=== PATIENT | female | born 1955 | race Caucasian/White ===

== ENCOUNTER 2020-10-28 15:47 | Inpatient (IN) | payer MEDICARE, BC ==
[2020-10-28] MEDS ORDERED: Nitroglycerin 50 MG/250 ML BOT 250 ML ONE (15:54)
[2020-10-28 16:09] LABS: Actual Bicarbonate (HCO3a) 30.9 mEq/L (22-28); Analyzer IN Cardio ER; Calcium, Ionized (arterial) 1.15 mmol/L (1.12-1.30); Carboxyhemoglobin (COHb) 0.6 gm% (0.0-3.0); Hemoglobin (Hb) 14.2 g/dL (12.0-16.0); O2 Tension (PaO2), arterial 380.3 mmHg (> 80.0); Potassium - ABG Lab 3.66 mmol/L (3.70-5.30); pH, Arterial 7.32 (7.35-7.45)
[2020-10-28 16:11] LABS: CO2 Tension 61.7 mmHg (35.0-45.0); Puncture Site RRA
[2020-10-28] MEDS ORDERED: Lidocaine 1% (PF) 30 ML VIAL ONE (16:15)
[2020-10-28 16:18] LABS: ALV-art Gradient 255.575 mmHg (0-20)
[2020-10-28 16:25] LABS: #Eosinphils 0.1 thou/uL (0.0-0.7); #Monocytes 0.9 thou/uL (0.11-0.59); #Neutrophils 16.3 thou/uL (1.40-6.50); %Basophils 0.1 % (0.0-1.0); %Eosinophils 0.5 % (0.0-10.0); %Lymphocytes 5.2 % (21.0-51.0); %Monocytes 5.1 % (0.0-10.0); %Neutrophils 89.2 % (42.0-75.0); Hemoglobin 13.4 g/dL (12.0-16.0); Mean Corpuscular HGB CONC 31.4 g/dL (32.0-36.0); Mean Corpuscular Hemoglobin 30.1 pg (27.0-31.0); Mean Platelet Volume 8.8 fL (7.4-10.4); Platelet Count 246 thou/uL (130-400); RBC Distribution Width 13.7 % (11.5-14.5); Red Blood Cell (RBC) Count 4.45 mill/uL (4.20-5.40); White Blood Cell (WBC) Count 18.3 thou/uL (4.8-10.8)
[2020-10-28 16:58] LABS: ALT (SGPT) 19 U/L (8-55); AST (SGOT) 19 U/L (5-34); Albumin 4.1 g/dL (3.4-4.8); Alkaline Phosphatase 95 U/L (40-110); Anion Gap 19 mmol/L (10-20); BUN (Urea Nitrogen) 17 mg/dL (9.8-20.1); Bilirubin, Total 0.9 mg/dL (0.2-1.2); Calc. Creatinine Clearance 0 mL/min (70-130); Calcium 9.4 mg/dL (7.8-10.44); Carbon Dioxide 27 mmol/L (23-31); Chloride 98 mmol/L (98-107); Globulin 3.7 g/dL (2.4-3.5); Glucose 152 mg/dL (80-115); Potassium 3.9 mmol/L (3.5-5.1); Protein, Total 7.8 g/dL (5.8-8.1); Sodium 140 mmol/L (136-145)
[2020-10-28] MEDS ORDERED: Furosemide 40 MG/4 ML VIAL ONE ×2 (17:13→19:45)
[2020-10-28 17:18] LABS: Bacteria/HPF None Seen HPF (None Seen); Bilirubin Negative (Negative); Blood, Urine Negative (Negative); Clarity Turbid (Clear); Glucose, Urine (Dipstick) Normal (Negative); Ketone, Urine 10 mg/dL (Negative); Leukocyte Negative Leu/uL (Negative); Nitrite Negative (Negative); Protein, Urine (Dipstick) 300 mg/dL (Neg-Trace); RBC/HPF 0-3 HPF (0-3); Specific Gravity, Urine 1.019 (1.002-1.036); Squamous Epithelial None Seen HPF (0-3); Urobilinogen Normal mg/dL (Less than 2); WBC/HPF 0-3 HPF (0-3); pH, Urine 7.5 (5.0-9.0)
[2020-10-28] MEDS ORDERED: cefTRIAXone\\ROCEPHIN 2 GM VIAL ONE (17:31)
[2020-10-28] MEDS ORDERED: Azithromycin 500 MG VIAL ONE (17:31)
[2020-10-28 17:50] LABS: SARS-CoV-2 NAA Rapid Test Not Detected (NotDetected)
[2020-10-28] MEDS ORDERED: Labetalol HCl 100 MG/20 ML VIAL ONE (18:24)
[2020-10-28] MEDS ORDERED: Acetaminophen 500 MG TAB ONE ×2 (19:51→19:52)
[2020-10-28] MEDS ORDERED: Bisacodyl 10 MG SUPP PR PRN (20:09)
[2020-10-28] MEDS ORDERED: hydrALAZINE 20 MG/ML VIAL SLOW IVP PRN (20:13)
[2020-10-28] MEDS ORDERED: Furosemide 40 MG/4 ML VIAL SLOW IVP SCH (20:15)
[2020-10-28] MEDS ORDERED: hydrALAZINE 20 MG/ML VIAL ONE (21:12)
[2020-10-28] MEDS ORDERED: Nitroglycerin 2% Ointment 1 INCH/1 GM Packet ONE (21:33)
[2020-10-28 22:25] VITALS: BMI 50.3
[2020-10-28] MEDS ORDERED: Losartan 25 MG TAB PO SCH (22:45)
[2020-10-28] MEDS ORDERED: hydrALAZINE 25 MG TAB PO SCH (22:45)
[2020-10-28] MEDS ORDERED: Carvedilol 25 MG TAB PO SCH (22:45)
[2020-10-28] MEDS: Nitroglycerin 2% Ointment 1 INCH/1 GM Packet TOP SCH (22:58)
[2020-10-29 00:05] LABS: Troponin I 0.478 ng/mL (< 0.028)
[2020-10-29] MEDS: Ondansetron PF 4 MG/2 ML Vial IVP PRN ×2 (02:31→09:01)
[2020-10-29 04:07] LABS: #Lymphocytes 0.5 thou/uL (1.20-3.40); #Monocytes 0.1 thou/uL (0.11-0.59); #Neutrophils 9.5 thou/uL (1.40-6.50); %Basophils 0.1 % (0.0-1.0); %Eosinophils 0.1 % (0.0-10.0); %Lymphocytes 4.8 % (21.0-51.0); %Monocytes 0.9 % (0.0-10.0); Hemoglobin 13.1 g/dL (12.0-16.0); Mean Corpuscular HGB CONC 33.7 g/dL (32.0-36.0); Mean Corpuscular Hemoglobin 32.1 pg (27.0-31.0); Mean Corpuscular Volume 95.3 fL (78.0-98.0); Mean Platelet Volume 9.5 fL (7.4-10.4); Platelet Count 195 thou/uL (130-400); RBC Distribution Width 13.6 % (11.5-14.5); Red Blood Cell (RBC) Count 4.08 mill/uL (4.20-5.40); White Blood Cell (WBC) Count 10.1 thou/uL (4.8-10.8)
[2020-10-29] MEDS ORDERED: Ondansetron PF 4 MG/2 ML Vial IVP SCH ×2 (04:15→13:00)
[2020-10-29 04:29] LABS: Albumin 3.8 g/dL (3.4-4.8); Anion Gap 16 mmol/L (10-20); BUN (Urea Nitrogen) 17 mg/dL (9.8-20.1); BUN/Creatinine Ratio 18.48; Calc. Creatinine Clearance 124 mL/min (70-130); Calcium 9.1 mg/dL (7.8-10.44); Carbon Dioxide 31 mmol/L (23-31); Chloride 93 mmol/L (98-107); Glucose 131 mg/dL (80-115); Phosphorus 3.4 mg/dL (2.3-4.7); Potassium 3.2 mmol/L (3.5-5.1); Sodium 137 mmol/L (136-145)
[2020-10-29] MEDS: Furosemide 100 MG/10 ML VIAL SLOW IVP SCH ×2 (05:18→14:43)
[2020-10-29] MEDS: Nitroglycerin 2% Ointment 1 INCH/1 GM Packet TOP SCH ×3 (06:36→22:15)
[2020-10-29] MEDS ORDERED: Carvedilol 25 MG TAB PO SCH (08:00)
[2020-10-29] MEDS: Enoxaparin Sodium 40 MG/0.4 ML SYRINGE SC SCH (09:00)
[2020-10-29] MEDS ORDERED: Lorazepam 2 MG/ML VIAL ONE (11:23)
[2020-10-29 12:14] LABS: Creatinine, Urine 70.22 mg/dL (47-110)
[2020-10-29] MEDS ORDERED: Potassium Chloride 20 MEQ TAB PO SCH (12:15)
[2020-10-29] MEDS: hydrALAZINE 25 MG TAB PO SCH ×3 (12:20→20:50)
[2020-10-29] MEDS: Losartan 25 MG TAB PO SCH (12:20)
[2020-10-29] MEDS ORDERED: Aspirin 81 mg Enteric Coated Tablet PO SCH (13:15)
[2020-10-29] MEDS: Mometasone 200 MCG/Formoterol 5 MCG 120 PUFF INHALER INH SCH ×3 (13:59→18:29)
[2020-10-29] MEDS: Baclofen 10 MG TAB PO SCH ×3 (14:42→23:35)
[2020-10-29] MEDS: methylPREDNISolone Sod Succ 40 MG VIAL IVP SCH ×3 (14:43→23:14)
[2020-10-29] MEDS ORDERED: cefTRIAXone\\ROCEPHIN 1 GM in Sodium Chloride 0.9% 100 ML IVPB SCH (17:00)
[2020-10-29] MEDS: Potassium Chloride 20 MEQ TAB PO SCH (17:39)
[2020-10-29] MEDS: Dronedarone HCl 400 MG TAB PO SCH (17:39)
[2020-10-29] MEDS: cefTRIAXone\\ROCEPHIN 2 GM in Sodium Chloride 0.9% 100 ML IVPB SCH (17:40)
[2020-10-29] MEDS ORDERED: Azithromycin 500 MG in Sodium Chloride 0.9% 250 ML 250 ML IVPB SCH (18:00)
[2020-10-29] MEDS ORDERED: Ondansetron PF 4 MG/2 ML Vial IVP PRN (19:00)
[2020-10-29] MEDS: Azithromycin 500 MG in Sodium Chloride 0.9% 250 ML 250 ML IVPB SCH (20:49)
[2020-10-29] MEDS: Pregabalin 75 MG CAP PO SCH (20:50)
[2020-10-29] MEDS: traZODone HCl 50 MG TAB PO SCH (20:52)
[2020-10-29] MEDS: Carvedilol 25 MG TAB PO SCH (20:52)
[2020-10-30] MEDS: NIFEdipine XL 60 MG TAB PO SCH ×3 (00:08→20:52)
[2020-10-30 04:05] LABS: #Lymphocytes 0.6 thou/uL (1.20-3.40); #Monocytes 0.3 thou/uL (0.11-0.59); #Neutrophils 10.9 thou/uL (1.40-6.50); %Basophils 0.1 % (0.0-1.0); %Eosinophils 0.1 % (0.0-10.0); %Lymphocytes 4.7 % (21.0-51.0); %Monocytes 2.2 % (0.0-10.0); %Neutrophils 92.9 % (42.0-75.0); Hemoglobin 12.3 g/dL (12.0-16.0); Mean Corpuscular HGB CONC 33.5 g/dL (32.0-36.0); Mean Corpuscular Hemoglobin 32.3 pg (27.0-31.0); Mean Corpuscular Volume 96.4 fL (78.0-98.0); Platelet Count 228 thou/uL (130-400); RBC Distribution Width 13.9 % (11.5-14.5); Red Blood Cell (RBC) Count 3.81 mill/uL (4.20-5.40); White Blood Cell (WBC) Count 11.8 thou/uL (4.8-10.8)
[2020-10-30 04:28] LABS: Anion Gap 17 mmol/L (10-20); BUN (Urea Nitrogen) 24 mg/dL (9.8-20.1); Calc. Creatinine Clearance 105 mL/min (70-130); Carbon Dioxide 32 mmol/L (23-31); Chloride 96 mmol/L (98-107); Glucose 140 mg/dL (80-115); Magnesium 2.2 mg/dL (1.6-2.6); Potassium 3.6 mmol/L (3.5-5.1); Sodium 141 mmol/L (136-145)
[2020-10-30] MEDS: Furosemide 100 MG/10 ML VIAL SLOW IVP SCH ×2 (05:42→13:00)
[2020-10-30] MEDS: Levothyroxine Sodium 125 MCG TAB PO SCH (05:42)
[2020-10-30] MEDS: methylPREDNISolone Sod Succ 40 MG VIAL IVP SCH ×4 (05:43→23:09)
[2020-10-30] MEDS: Nitroglycerin 2% Ointment 1 INCH/1 GM Packet TOP SCH ×3 (06:06→20:20)
[2020-10-30] MEDS: Acetaminophen 325 MG TAB PO PRN ×2 (06:25→20:18)
[2020-10-30] MEDS: Mometasone 200 MCG/Formoterol 5 MCG 120 PUFF INHALER INH SCH ×2 (08:17→18:27)
[2020-10-30] MEDS: Bupropion 100 MG SR TAB PO SCH (08:40)
[2020-10-30] MEDS: Carvedilol 25 MG TAB PO SCH ×2 (08:41→20:18)
[2020-10-30] MEDS: Dronedarone HCl 400 MG TAB PO SCH ×2 (08:41→17:07)
[2020-10-30] MEDS: Losartan 25 MG TAB PO SCH (08:41)
[2020-10-30] MEDS: Potassium Chloride 20 MEQ TAB PO SCH ×2 (08:41→16:36)
[2020-10-30] MEDS: Lorazepam 2 MG/ML VIAL SLOW IVP PRN (08:42)
[2020-10-30] MEDS: Aspirin 81 mg Enteric Coated Tablet PO SCH (08:42)
[2020-10-30] MEDS: Enoxaparin Sodium 40 MG/0.4 ML SYRINGE SC SCH (08:42)
[2020-10-30] MEDS: Baclofen 10 MG TAB PO SCH ×4 (08:42→20:20)
[2020-10-30] MEDS: HYDROcodone/Acetaminophen 5/325 mg Tablet PO PRN ×2 (08:42→21:29)
[2020-10-30] MEDS: Pregabalin 75 MG CAP PO SCH ×2 (08:55→20:19)
[2020-10-30 14:17] LABS: Anion Gap 18 mmol/L (10-20); BUN (Urea Nitrogen) 28 mg/dL (9.8-20.1); Calc. Creatinine Clearance 92 mL/min (70-130); Calcium 9.1 mg/dL (7.8-10.44); Carbon Dioxide 30 mmol/L (23-31); Chloride 96 mmol/L (98-107); Glucose 189 mg/dL (80-115); Sodium 140 mmol/L (136-145)
[2020-10-30] MEDS: cefTRIAXone\\ROCEPHIN 2 GM in Sodium Chloride 0.9% 100 ML IVPB SCH (18:24)
[2020-10-30] MEDS: traZODone HCl 50 MG TAB PO SCH (20:19)
[2020-10-30] MEDS: Azithromycin 500 MG in Sodium Chloride 0.9% 250 ML 250 ML IVPB SCH (20:51)
[2020-10-31 05:04] LABS: Troponin I 0.052 ng/mL (< 0.028)
[2020-10-31] MEDS: Nitroglycerin 2% Ointment 1 INCH/1 GM Packet TOP SCH (05:28)
[2020-10-31] MEDS: Levothyroxine Sodium 125 MCG TAB PO SCH (05:29)
[2020-10-31] MEDS: methylPREDNISolone Sod Succ 40 MG VIAL IVP SCH (05:29)
[2020-10-31 07:50] LABS: Albumin 3.7 g/dL (3.4-4.8); BUN (Urea Nitrogen) 36 mg/dL (9.8-20.1); BUN/Creatinine Ratio 27.69; Calc. Creatinine Clearance 85 mL/min (70-130); Calcium 9.4 mg/dL (7.8-10.44); Glucose 171 mg/dL (80-115); Phosphorus 3.5 mg/dL (2.3-4.7)
[2020-10-31 08:01] LABS: Anion Gap 14 mmol/L (10-20); Carbon Dioxide 37 mmol/L (23-31); Chloride 95 mmol/L (98-107); Potassium 3.4 mmol/L (3.5-5.1); Sodium 143 mmol/L (136-145)
[2020-10-31] MEDS ORDERED: Potassium Chloride 20 MEQ TAB PO SCH ×2 (08:30→13:45)
[2020-10-31 08:31] LABS: #Lymphocytes 0.6 thou/uL (1.20-3.40); #Monocytes 0.4 thou/uL (0.11-0.59); %Eosinophils 0.1 % (0.0-10.0); %Monocytes 3.2 % (0.0-10.0); %Neutrophils 91.7 % (42.0-75.0); Hemoglobin 13.2 g/dL (12.0-16.0); Mean Corpuscular HGB CONC 33.6 g/dL (32.0-36.0); Mean Corpuscular Hemoglobin 32.5 pg (27.0-31.0); Mean Corpuscular Volume 96.8 fL (78.0-98.0); Mean Platelet Volume 8.7 fL (7.4-10.4); Platelet Count 231 thou/uL (130-400); RBC Distribution Width 13.6 % (11.5-14.5); Red Blood Cell (RBC) Count 4.07 mill/uL (4.20-5.40)
[2020-10-31] MEDS: Losartan 25 MG TAB PO SCH (08:39)
[2020-10-31] MEDS: NIFEdipine XL 60 MG TAB PO SCH ×2 (08:39→19:58)
[2020-10-31] MEDS: Aspirin 81 mg Enteric Coated Tablet PO SCH (08:39)
[2020-10-31] MEDS: Pregabalin 75 MG CAP PO SCH ×2 (08:40→19:58)
[2020-10-31] MEDS: Bupropion 100 MG SR TAB PO SCH (08:40)
[2020-10-31] MEDS: Enoxaparin Sodium 40 MG/0.4 ML SYRINGE SC SCH (08:41)
[2020-10-31] MEDS: HYDROcodone/Acetaminophen 5/325 mg Tablet PO PRN (08:41)
[2020-10-31] MEDS: Dronedarone HCl 400 MG TAB PO SCH ×2 (08:41→15:41)
[2020-10-31] MEDS: Baclofen 10 MG TAB PO SCH ×4 (08:41→19:59)
[2020-10-31] MEDS: Carvedilol 25 MG TAB PO SCH ×2 (08:45→19:58)
[2020-10-31 08:52] LABS: BUN (Urea Nitrogen) 36 mg/dL (9.8-20.1); Calc. Creatinine Clearance 94 mL/min (70-130); Calcium 9.4 mg/dL (7.8-10.44); Glucose 164 mg/dL (80-115)
[2020-10-31] MEDS: Doxycycline 100 MG CAP PO SCH ×2 (08:55→19:58)
[2020-10-31 09:01] LABS: Anion Gap 20 mmol/L (10-20); Carbon Dioxide 32 mmol/L (23-31); Chloride 94 mmol/L (98-107); Potassium 3.3 mmol/L (3.5-5.1); Sodium 143 mmol/L (136-145)
[2020-10-31] MEDS: Lorazepam 2 MG/ML VIAL SLOW IVP PRN (10:27)
[2020-10-31] MEDS: Mometasone 200 MCG/Formoterol 5 MCG 120 PUFF INHALER INH SCH ×2 (10:30→18:44)
[2020-10-31] MEDS: Potassium Chloride 20 MEQ TAB PO SCH (15:41)
[2020-10-31] MEDS: traZODone HCl 50 MG TAB PO SCH (19:58)
[2020-10-31] MEDS ORDERED: Famotidine 20 MG TAB PO SCH (22:00)
[2020-11-01 05:14] LABS: Albumin 3.5 g/dL (3.4-4.8); Anion Gap 11 mmol/L (10-20); BUN (Urea Nitrogen) 33 mg/dL (9.8-20.1); BUN/Creatinine Ratio 34.74; Calc. Creatinine Clearance 116 mL/min (70-130); Calcium 9.3 mg/dL (7.8-10.44); Carbon Dioxide 37 mmol/L (23-31); Chloride 96 mmol/L (98-107); Glucose 147 mg/dL (80-115); Magnesium 2.1 mg/dL (1.6-2.6); Potassium 4.3 mmol/L (3.5-5.1); Sodium 140 mmol/L (136-145)
[2020-11-01] MEDS: Levothyroxine Sodium 125 MCG TAB PO SCH (05:36)
[2020-11-01] MEDS: HYDROcodone/Acetaminophen 5/325 mg Tablet PO PRN (07:17)
[2020-11-01] MEDS: Carvedilol 25 MG TAB PO SCH (07:20)
[2020-11-01] MEDS ORDERED: predniSONE 20 MG TAB PO SCH (08:00)
[2020-11-01] MEDS: Mometasone 200 MCG/Formoterol 5 MCG 120 PUFF INHALER INH SCH (08:20)
[2020-11-01] MEDS: Dronedarone HCl 400 MG TAB PO SCH (08:36)
[2020-11-01] MEDS: NIFEdipine XL 60 MG TAB PO SCH (08:36)
[2020-11-01] MEDS: Bupropion 100 MG SR TAB PO SCH (08:36)
[2020-11-01] MEDS: Aspirin 81 mg Enteric Coated Tablet PO SCH (08:36)
[2020-11-01] MEDS: Enoxaparin Sodium 40 MG/0.4 ML SYRINGE SC SCH (08:36)
[2020-11-01] MEDS: Doxycycline 100 MG CAP PO SCH (08:36)
[2020-11-01] MEDS: Pregabalin 75 MG CAP PO SCH (08:36)
[2020-11-01] MEDS: Losartan 25 MG TAB PO SCH (08:37)
[2020-11-01] MEDS: Potassium Chloride 20 MEQ TAB PO SCH (08:37)
[2020-11-01] MEDS: hydrALAZINE 25 MG TAB PO SCH ×2 (08:39→13:54)
[2020-11-01] MEDS: Baclofen 10 MG TAB PO SCH ×2 (08:42→13:54)
[2020-11-01] MEDS ORDERED: Famotidine 20 MG TAB PO SCH (09:00)
[2020-11-01] MEDS ORDERED: HYDROmorphone 0.5 MG/0.5 ML SYRINGE SLOW IVP SCH (09:15)
[2020-11-01] MEDS ORDERED: Promethazine HCl 12.5 MG in Sodium Chloride 0.9% 50 ML IVPB PRN (13:22)
[2020-11-01 13:54] VITALS: BP 130/62; TEMP 97.7
[2020-11-01] MEDS ORDERED: Promethazine HCl 6.25 MG/5 ML Syrup PO PRN (14:19)
== END 2020-11-01 15:12 | disposition home health service (06) | DRG 280 ==
LOC: ERS 15:47 → IMCU/EMU 18:21 → 2NO 10-30 20:36
PROVIDERS: ADMIT Family Medicine; ATTEND Internal Medicine
PROC: 5A09457 Assistance with Respiratory Ventilation, 24-96 Consecutive Hours, Continuous Positive Airway Pressure (ICD-10-PCS; principal; 2020-10-28)
DX: I13.0 Hypertensive heart and chronic kidney disease with heart failure and stage 1 through stage 4 chronic kidney disease, or unspecified chronic kidney disease (principal); J18.9 Pneumonia, unspecified organism; I21.4 Non-ST elevation (NSTEMI) myocardial infarction; J96.21 Acute and chronic respiratory failure with hypoxia; J96.22 Acute and chronic respiratory failure with hypercapnia; I50.33 Acute on chronic diastolic (congestive) heart failure; J44.1 Chronic obstructive pulmonary disease with (acute) exacerbation; J44.0 Chronic obstructive pulmonary disease with (acute) lower respiratory infection; E66.2 Morbid (severe) obesity with alveolar hypoventilation; N17.9 Acute kidney failure, unspecified; E87.4 Mixed disorder of acid-base balance; I16.1 Hypertensive emergency; Z68.42 Body mass index [BMI] 45.0-49.9, adult; Z20.822 Contact with and (suspected) exposure to COVID-19; E78.5 Hyperlipidemia, unspecified; I25.10 Atherosclerotic heart disease of native coronary artery without angina pectoris; N18.9 Chronic kidney disease, unspecified; F32.9 Major depressive disorder, single episode, unspecified; F41.9 Anxiety disorder, unspecified; E03.9 Hypothyroidism, unspecified; G89.29 Other chronic pain; E78.00 Pure hypercholesterolemia, unspecified; I48.0 Paroxysmal atrial fibrillation; E87.6 Hypokalemia; Z89.511 Acquired absence of right leg below knee; Z95.5 Presence of coronary angioplasty implant and graft; Z96.82 Presence of neurostimulator; Z88.8 Allergy status to other drugs, medicaments and biological substances; Z79.01 Long term (current) use of anticoagulants; Z79.82 Long term (current) use of aspirin; Z79.899 Other long term (current) drug therapy; Z99.81 Dependence on supplemental oxygen; Z82.3 Family history of stroke; Z87.891 Personal history of nicotine dependence
CPT/HCPCS: 0240U; 36415; 36600; 36620; 51702; 71045; 80048; 80053; 80069; 81003; 81015; 82088; 82570; 82805; 83605; 83735; 83880; 84156; 84244; 84443; 84484; 85025; 87040; 87086; 93005; 93306; 94640; 94660; 94760; 96365; 96366; 96367; 96375; 96376; J0360; J0456; J0696; J1170; J1650; J1940; J2001; J2060; J2405; J2550; J2920; J3490; J7050; J7512; J7620; Q0169

== ENCOUNTER 2021-02-19 13:00 | Inpatient (IN) | payer MEDICARE, BC ==
[2021-02-19 13:51] LABS: #Eosinphils 0.1 thou/uL (0.0-0.7); #Lymphocytes 1.1 thou/uL (1.20-3.40); #Monocytes 0.7 thou/uL (0.11-0.59); #Neutrophils 6.8 thou/uL (1.40-6.50); %Basophils 0.3 % (0.0-1.0); %Eosinophils 1.7 % (0.0-10.0); %Lymphocytes 12.5 % (21.0-51.0); %Monocytes 8.2 % (0.0-10.0); %Neutrophils 77.4 % (42.0-75.0); Hemoglobin 12.2 g/dL (12.0-16.0); Mean Corpuscular Hemoglobin 33.6 pg (27.0-31.0); Mean Corpuscular Volume 98.7 fL (78.0-98.0); Mean Platelet Volume 8.4 fL (7.4-10.4); Platelet Count 180 thou/uL (130-400); RBC Distribution Width 12.9 % (11.5-14.5); Red Blood Cell (RBC) Count 3.63 mill/uL (4.20-5.40); White Blood Cell (WBC) Count 8.7 thou/uL (4.8-10.8)
[2021-02-19 14:19] LABS: ALT (SGPT) 14 U/L (8-55); AST (SGOT) 15 U/L (5-34); Albumin 3.8 g/dL (3.4-4.8); Alkaline Phosphatase 91 U/L (40-110); BUN (Urea Nitrogen) 19 mg/dL (9.8-20.1); Bilirubin, Total 0.4 mg/dL (0.2-1.2); Calc. Creatinine Clearance 0 mL/min (70-130); Calcium 9.3 mg/dL (7.8-10.44); Globulin 2.5 g/dL (2.4-3.5); Glucose 165 mg/dL (80-115); Protein, Total 6.3 g/dL (5.8-8.1)
[2021-02-19 14:29] LABS: Anion Gap 18 mmol/L (10-20); Carbon Dioxide 36 mmol/L (23-31); Chloride 94 mmol/L (98-107); Potassium 3.4 mmol/L (3.5-5.1); Sodium 145 mmol/L (136-145)
[2021-02-19 16:56] LABS: SARS-CoV-2 NAA Rapid Test Not Detected (NotDetected)
[2021-02-19 17:24] LABS: Troponin I Less than 0.010 ng/mL (< 0.028)
[2021-02-19] MEDS ORDERED: Bisacodyl 5 MG TAB PO PRN (18:50)
[2021-02-19] MEDS ORDERED: Ondansetron PF 4 MG/2 ML Vial IVP PRN (18:50)
[2021-02-19] MEDS ORDERED: HYDROcodone/Acetaminophen 7.5/325 mg Tablet PO PRN (18:50)
[2021-02-19] MEDS ORDERED: HYDROcodone/Acetaminophen 5/325 mg Tablet PO PRN (18:50)
[2021-02-19] MEDS ORDERED: Acetaminophen 325 MG TAB PO PRN (18:50)
[2021-02-19] MEDS ORDERED: Senokot S 8.6-50 MG TAB PO PRN (18:50)
[2021-02-19] MEDS ORDERED: Melatonin 3 MG TAB PO PRN (18:57)
[2021-02-19 21:08] LABS: Troponin I 0.013 ng/mL (< 0.028)
[2021-02-19] MEDS: Famotidine/PF 20 mg/2ml Vial SLOW IVP SCH (21:24)
[2021-02-19] MEDS: hydrALAZINE 20 MG/ML VIAL SLOW IVP PRN (21:24)
[2021-02-19 23:28] VITALS: BMI 52.0
[2021-02-20] MEDS: hydrALAZINE 20 MG/ML VIAL SLOW IVP PRN (01:52)
[2021-02-20] MEDS ORDERED: Albuterol Sulfate 2.5 mg/3 ml Neb NEB PRN (02:17)
[2021-02-20] MEDS: Levothyroxine Sodium 125 MCG TAB PO SCH (06:22)
[2021-02-20 06:34] LABS: #Eosinphils 0.1 thou/uL (0.0-0.7); #Lymphocytes 1.2 thou/uL (1.20-3.40); #Monocytes 0.9 thou/uL (0.11-0.59); #Neutrophils 7.2 thou/uL (1.40-6.50); %Basophils 0.2 % (0.0-1.0); %Lymphocytes 12.3 % (21.0-51.0); %Monocytes 9.6 % (0.0-10.0); %Neutrophils 76.9 % (42.0-75.0); Hemoglobin 12.1 g/dL (12.0-16.0); Mean Corpuscular HGB CONC 32.7 g/dL (32.0-36.0); Mean Corpuscular Volume 97.8 fL (78.0-98.0); Mean Platelet Volume 8.5 fL (7.4-10.4); Platelet Count 176 thou/uL (130-400); RBC Distribution Width 12.8 % (11.5-14.5); Red Blood Cell (RBC) Count 3.78 mill/uL (4.20-5.40); White Blood Cell (WBC) Count 9.3 thou/uL (4.8-10.8)
[2021-02-20 06:53] LABS: ALT (SGPT) 13 U/L (8-55); AST (SGOT) 15 U/L (5-34); Albumin 3.6 g/dL (3.4-4.8); Alkaline Phosphatase 85 U/L (40-110); Anion Gap 12 mmol/L (10-20); BUN (Urea Nitrogen) 14 mg/dL (9.8-20.1); Bilirubin, Total 0.5 mg/dL (0.2-1.2); Calc. Creatinine Clearance 126 mL/min (70-130); Calcium 9.4 mg/dL (7.8-10.44); Carbon Dioxide 36 mmol/L (23-31); Cardiac Risk 2.8 (Less than 4.5); Chloride 97 mmol/L (98-107); Cholesterol 132 mg/dl (< 200 Desired); Globulin 2.6 g/dL (2.4-3.5); Glucose 104 mg/dL (80-115); HDL Cholesterol 48 mg/dL (>60 Neg Risk); LDL Cholesterol, Calculated 71 mg/dL; Potassium 3.2 mmol/L (3.5-5.1); Protein, Total 6.2 g/dL (5.8-8.1); Sodium 142 mmol/L (136-145); Triglycerides 65 mg/dL (Less than 150)
[2021-02-20] MEDS: Mometasone 100 MCG/PUFF (1 INHALER) INH SCH ×2 (06:58→18:15)
[2021-02-20 07:51] LABS: Hemoglobin A1c 5.5 % (4.0-6.0)
[2021-02-20] MEDS: Pregabalin 75 MG CAP PO SCH ×2 (08:29→21:39)
[2021-02-20] MEDS: Enoxaparin Sodium 40 MG/0.4 ML SYRINGE SC SCH (08:29)
[2021-02-20] MEDS: Rosuvastatin 20 MG TAB PO SCH (08:30)
[2021-02-20] MEDS: hydrALAZINE 25 MG TAB PO SCH ×3 (08:30→16:59)
[2021-02-20] MEDS: NIFEdipine XL 60 MG TAB PO SCH ×2 (08:31→21:38)
[2021-02-20] MEDS: Dronedarone HCl 400 MG TAB PO SCH ×2 (08:31→21:38)
[2021-02-20] MEDS: Escitalopram Oxalate 10 mg Tablet PO SCH (08:31)
[2021-02-20] MEDS: Famotidine/PF 20 mg/2ml Vial SLOW IVP SCH ×2 (08:32→21:38)
[2021-02-20] MEDS: Carvedilol 25 MG TAB PO SCH ×2 (08:47→21:38)
[2021-02-20] MEDS ORDERED: Bumetanide 1 MG TAB PO SCH (09:00)
[2021-02-20] MEDS ORDERED: Losartan 25 MG TAB PO SCH (09:00)
[2021-02-20] MEDS ORDERED: Potassium Chloride 20 MEQ TAB PO SCH (09:00)
[2021-02-20] MEDS ORDERED: Non-Formulary Item 1 EACH (Fluticasone/Umeclidin/Vilanter [Trelegy Ellipta 200-62.5-25] 1 INH SCH (09:00)
[2021-02-20] MEDS: Furosemide 40 MG/4 ML VIAL SLOW IVP SCH (14:09)
[2021-02-21 06:10] LABS: Phosphorus 3.2 mg/dL (2.3-4.7)
[2021-02-21 06:11] LABS: Anion Gap 11 mmol/L (10-20); BUN (Urea Nitrogen) 14 mg/dL (9.8-20.1); Calc. Creatinine Clearance 121 mL/min (70-130); Calcium 9.2 mg/dL (7.8-10.44); Carbon Dioxide 36 mmol/L (23-31); Chloride 99 mmol/L (98-107); Glucose 85 mg/dL (80-115); Magnesium 1.9 mg/dL (1.6-2.6); Potassium 3.4 mmol/L (3.5-5.1); Sodium 143 mmol/L (136-145)
[2021-02-21] MEDS: Furosemide 40 MG/4 ML VIAL SLOW IVP SCH ×2 (06:34→14:41)
[2021-02-21] MEDS: Levothyroxine Sodium 125 MCG TAB PO SCH (06:34)
[2021-02-21] MEDS: Mometasone 100 MCG/PUFF (1 INHALER) INH SCH ×2 (06:55→18:23)
[2021-02-21] MEDS: Rosuvastatin 20 MG TAB PO SCH (09:10)
[2021-02-21] MEDS: hydrALAZINE 25 MG TAB PO SCH ×3 (09:10→16:55)
[2021-02-21] MEDS: Pregabalin 75 MG CAP PO SCH ×2 (09:11→21:33)
[2021-02-21] MEDS: NIFEdipine XL 60 MG TAB PO SCH ×2 (09:12→20:46)
[2021-02-21] MEDS: Dronedarone HCl 400 MG TAB PO SCH ×2 (09:12→20:46)
[2021-02-21] MEDS: Escitalopram Oxalate 10 mg Tablet PO SCH (09:12)
[2021-02-21] MEDS: Carvedilol 25 MG TAB PO SCH ×2 (09:12→20:46)
[2021-02-21] MEDS: Enoxaparin Sodium 40 MG/0.4 ML SYRINGE SC SCH (09:13)
[2021-02-21] MEDS: Famotidine/PF 20 mg/2ml Vial SLOW IVP SCH ×2 (09:13→20:46)
[2021-02-21] MEDS ORDERED: Potassium Chloride 20 MEQ TAB PO SCH (11:00)
[2021-02-22] MEDS: Levothyroxine Sodium 125 MCG TAB PO SCH (05:26)
[2021-02-22] MEDS: Furosemide 40 MG/4 ML VIAL SLOW IVP SCH (05:26)
[2021-02-22] MEDS: Mometasone 100 MCG/PUFF (1 INHALER) INH SCH (06:30)
[2021-02-22] MEDS: Rosuvastatin 20 MG TAB PO SCH (08:34)
[2021-02-22] MEDS: NIFEdipine XL 60 MG TAB PO SCH (08:34)
[2021-02-22] MEDS: Enoxaparin Sodium 40 MG/0.4 ML SYRINGE SC SCH (08:35)
[2021-02-22] MEDS: Escitalopram Oxalate 10 mg Tablet PO SCH (08:35)
[2021-02-22] MEDS: Pregabalin 75 MG CAP PO SCH (08:35)
[2021-02-22] MEDS: Carvedilol 25 MG TAB PO SCH (08:35)
[2021-02-22] MEDS: Dronedarone HCl 400 MG TAB PO SCH (08:35)
[2021-02-22] MEDS: hydrALAZINE 25 MG TAB PO SCH ×2 (08:35→12:35)
[2021-02-22] MEDS: Famotidine/PF 20 mg/2ml Vial SLOW IVP SCH (08:36)
[2021-02-22 10:00] LABS: BUN (Urea Nitrogen) 17 mg/dL (9.8-20.1); Calc. Creatinine Clearance 88 mL/min (70-130); Calcium 9.6 mg/dL (7.8-10.44); Glucose 128 mg/dL (80-115)
[2021-02-22 10:09] LABS: Anion Gap 12 mmol/L (10-20); Carbon Dioxide 38 mmol/L (23-31); Chloride 96 mmol/L (98-107); Potassium 3.4 mmol/L (3.5-5.1); Sodium 143 mmol/L (136-145)
[2021-02-22] MEDS ORDERED: Potassium Chloride 20 MEQ TAB PO SCH (11:30)
[2021-02-22 13:49] VITALS: BP 111/56; TEMP 97.9
== END 2021-02-22 13:15 | disposition home or self-care (01) | DRG 291 ==
LOC: ERS 13:00 → ERHOLD 16:27 → 2SW 19:50 → OBSVTOIN 02-20 15:00
PROVIDERS: ADMIT Family Medicine; ATTEND Internal Medicine
DX: I13.0 Hypertensive heart and chronic kidney disease with heart failure and stage 1 through stage 4 chronic kidney disease, or unspecified chronic kidney disease (principal); J96.21 Acute and chronic respiratory failure with hypoxia; I50.33 Acute on chronic diastolic (congestive) heart failure; E87.3 Alkalosis; Z68.43 Body mass index [BMI] 50.0-59.9, adult; Z20.822 Contact with and (suspected) exposure to COVID-19; I48.91 Unspecified atrial fibrillation; I25.10 Atherosclerotic heart disease of native coronary artery without angina pectoris; F41.9 Anxiety disorder, unspecified; F32.A Depression, unspecified; E66.01 Morbid (severe) obesity due to excess calories; D63.1 Anemia in chronic kidney disease; G89.29 Other chronic pain; I16.0 Hypertensive urgency; J44.9 Chronic obstructive pulmonary disease, unspecified; E78.5 Hyperlipidemia, unspecified; N18.30 Chronic kidney disease, stage 3 unspecified; R73.9 Hyperglycemia, unspecified; E03.9 Hypothyroidism, unspecified; E87.6 Hypokalemia; E78.00 Pure hypercholesterolemia, unspecified; G47.33 Obstructive sleep apnea (adult) (pediatric); Z89.511 Acquired absence of right leg below knee; Z99.81 Dependence on supplemental oxygen; Z88.8 Allergy status to other drugs, medicaments and biological substances; Z91.048 Other nonmedicinal substance allergy status; Z95.5 Presence of coronary angioplasty implant and graft; Z98.1 Arthrodesis status; I25.2 Old myocardial infarction; Z87.891 Personal history of nicotine dependence
CPT/HCPCS: 36415; 36416; 71045; 80048; 80053; 80061; 83036; 83735; 83880; 84100; 84484; 85025; 87804; 93005; 94640; 96372; 96374; 96375; 96376; G0378; J0360; J1650; J1940; J2405; J7620; S0028; U0002

== ENCOUNTER 2021-04-26 09:49 | Inpatient (IN) | payer MEDICARE, BC ==
[2021-04-26] MEDS ORDERED: Nitroglycerin 2% Ointment 1 INCH/1 GM Packet ONE (10:13)
[2021-04-26] MEDS ORDERED: Nitroglycerin 0.4mg/Hour PATCH ONE (10:13)
[2021-04-26] MEDS ORDERED: cefTRIAXone\\ROCEPHIN 2 GM VIAL ONE (10:13)
[2021-04-26] MEDS ORDERED: Aspirin Chewable 81 MG TAB ONE (10:17)
[2021-04-26] MEDS ORDERED: methylPREDNISolone Sod Succ/PF 125 MG/2 ML VIAL ONE (10:18)
[2021-04-26] MEDS ORDERED: Magnesium 2 GM/50 ML BAG (IN WATER) ONE (10:26)
[2021-04-26 10:36] LABS: #Eosinphils 0.1 thou/uL (0.0-0.7); #Monocytes 0.8 thou/uL (0.11-0.59); #Neutrophils 10.7 thou/uL (1.40-6.50); %Basophils 0.4 % (0.0-1.0); %Eosinophils 0.9 % (0.0-10.0); %Lymphocytes 7.7 % (21.0-51.0); Hemoglobin 12.3 g/dL (12.0-16.0); Mean Corpuscular HGB CONC 32.1 g/dL (32.0-36.0); Mean Corpuscular Hemoglobin 30.9 pg (27.0-31.0); Mean Corpuscular Volume 96.3 fL (78.0-98.0); Mean Platelet Volume 8.7 fL (7.4-10.4); Platelet Count 213 thou/uL (130-400); RBC Distribution Width 12.8 % (11.5-14.5); Red Blood Cell (RBC) Count 3.98 mill/uL (4.20-5.40); White Blood Cell (WBC) Count 12.6 thou/uL (4.8-10.8)
[2021-04-26 10:47] LABS: INR-International Normal Ratio 1.1; Prothrombin Time 13.9 sec (12.0-14.7)
[2021-04-26 10:48] LABS: PTT 40.3 sec (22.9-36.1)
[2021-04-26 10:59] LABS: Actual Bicarbonate (HCO3a) 33.4 mEq/L (22-28); Analyzer IN Cardio ER; Base Excess (BEa) 7.8 mEq/L (-2.0 to +3.0); Calcium, Ionized (arterial) 1.14 mmol/L (1.12-1.30); Carboxyhemoglobin (COHb) 0.4 gm% (0.0-3.0); Hemoglobin (Hb) 12.1 g/dL (12.0-16.0); O2 Tension (PaO2), arterial 85.3 mmHg (> 80.0); Potassium - ABG Lab 3.53 mmol/L (3.70-5.30)
[2021-04-26 11:01] LABS: CO2 Tension 51.4 mmHg (35.0-45.0); Puncture Site RRA; pH, Arterial 7.43 (7.35-7.45)
[2021-04-26 11:01] LABS: ALT (SGPT) 12 U/L (8-55); AST (SGOT) 17 U/L (5-34); Albumin 4.6 g/dL (3.4-4.8); Alkaline Phosphatase 90 U/L (40-110); Anion Gap 18 mmol/L (10-20); BUN (Urea Nitrogen) 20 mg/dL (9.8-20.1); Bilirubin, Total 0.8 mg/dL (0.2-1.2); CK (CPK) 85 U/L (29-168); Calc. Creatinine Clearance 0 mL/min (70-130); Calcium 10.2 mg/dL (7.8-10.44); Carbon Dioxide 32 mmol/L (23-31); Chloride 94 mmol/L (98-107); Globulin 3.7 g/dL (2.4-3.5); Glucose 135 mg/dL (80-115); Lipase 19 U/L (8-78); Magnesium 2.1 mg/dL (1.6-2.6); Potassium 3.7 mmol/L (3.5-5.1); Protein, Total 8.3 g/dL (5.8-8.1); Sodium 140 mmol/L (136-145)
[2021-04-26] MEDS ORDERED: Acetaminophen 325 MG TAB PO PRN (11:45)
[2021-04-26 12:11] LABS: SARS-CoV-2 NAA Rapid Test Not Detected (NotDetected)
[2021-04-26 13:10] LABS: Bilirubin Negative (Negative); Blood, Urine Negative (Negative); Clarity Clear (Clear); Glucose, Urine (Dipstick) Normal (Negative); Ketone, Urine Negative (Negative); Leukocyte 500 Leu/uL (Negative); Nitrite Negative (Negative); Protein, Urine (Dipstick) 10 mg/dL (Neg-Trace); RBC/HPF 0-3 HPF (0-3); Specific Gravity, Urine 1.019 (1.002-1.036); Squamous Epithelial 0-3 HPF (0-3); Urobilinogen Normal mg/dL (Less than 2)
[2021-04-26 13:11] LABS: Bacteria/HPF 1+ HPF (None Seen)
[2021-04-26] MEDS ORDERED: Furosemide 40 MG/4 ML VIAL SLOW IVP SCH ×2 (14:00→16:45)
[2021-04-26 15:42] LABS: Troponin I 0.015 ng/mL (< 0.028)
[2021-04-26 16:28] VITALS: BMI 52.2
[2021-04-26] MEDS: hydrALAZINE 25 MG TAB PO SCH (16:45)
[2021-04-26 16:59] LABS: Troponin I 0.013 ng/mL (< 0.028)
[2021-04-26] MEDS: Pregabalin 75 MG CAP PO SCH (20:08)
[2021-04-26] MEDS: Rosuvastatin 20 MG TAB PO SCH (20:09)
[2021-04-26] MEDS: Dronedarone HCl 400 MG TAB PO SCH (20:10)
[2021-04-26] MEDS: NIFEdipine XL 60 MG TAB PO SCH (20:10)
[2021-04-26] MEDS: Carvedilol 25 MG TAB PO SCH (20:10)
[2021-04-27 03:22] LABS: #Lymphocytes 0.5 thou/uL (1.20-3.40); #Monocytes 0.1 thou/uL (0.11-0.59); #Neutrophils 7.2 thou/uL (1.40-6.50); %Basophils 0.1 % (0.0-1.0); %Eosinophils 0.2 % (0.0-10.0); %Lymphocytes 6.8 % (21.0-51.0); %Monocytes 1.7 % (0.0-10.0); %Neutrophils 91.2 % (42.0-75.0); Hemoglobin 11.9 g/dL (12.0-16.0); Mean Corpuscular HGB CONC 33.2 g/dL (32.0-36.0); Mean Corpuscular Hemoglobin 32.1 pg (27.0-31.0); Mean Corpuscular Volume 96.8 fL (78.0-98.0); Mean Platelet Volume 9.1 fL (7.4-10.4); Platelet Count 176 thou/uL (130-400); RBC Distribution Width 12.7 % (11.5-14.5); Red Blood Cell (RBC) Count 3.69 mill/uL (4.20-5.40); White Blood Cell (WBC) Count 7.8 thou/uL (4.8-10.8)
[2021-04-27 03:39] LABS: Anion Gap 19 mmol/L (10-20); BUN (Urea Nitrogen) 20 mg/dL (9.8-20.1); Carbon Dioxide 29 mmol/L (23-31); Chloride 95 mmol/L (98-107); Potassium 4.2 mmol/L (3.5-5.1); Sodium 139 mmol/L (136-145)
[2021-04-27 03:40] LABS: Calc. Creatinine Clearance 85 mL/min (70-130); Calcium 9.1 mg/dL (7.8-10.44); Glucose 152 mg/dL (80-115)
[2021-04-27] MEDS ORDERED: traMADol HCl 50 MG TAB PO SCH (04:30)
[2021-04-27] MEDS: Levothyroxine Sodium 125 MCG TAB PO SCH (04:55)
[2021-04-27] MEDS: Furosemide 40 MG/4 ML VIAL SLOW IVP SCH ×2 (04:55→14:57)
[2021-04-27] MEDS ORDERED: Morphine 4 MG/ML VIAL SLOW IVP SCH (06:45)
[2021-04-27] MEDS: Carvedilol 25 MG TAB PO SCH ×2 (08:52→21:04)
[2021-04-27] MEDS: Escitalopram Oxalate 10 mg Tablet PO SCH (08:52)
[2021-04-27] MEDS: hydrALAZINE 25 MG TAB PO SCH ×3 (08:52→17:29)
[2021-04-27] MEDS: Dronedarone HCl 400 MG TAB PO SCH ×2 (08:52→21:05)
[2021-04-27] MEDS: Aspirin 81 mg Enteric Coated Tablet PO SCH (08:53)
[2021-04-27] MEDS: NIFEdipine XL 60 MG TAB PO SCH ×2 (08:53→21:05)
[2021-04-27] MEDS: Potassium Chloride 20 MEQ TAB PO SCH (08:53)
[2021-04-27] MEDS: Morphine 4 MG/ML VIAL SLOW IVP PRN ×2 (11:47→14:57)
[2021-04-27] MEDS: cefTRIAXone\\ROCEPHIN 1 GM in Sodium Chloride 0.9% 100 ML IVPB SCH (11:48)
[2021-04-27] MEDS: traZODone HCl 50 MG TAB PO PRN (21:05)
[2021-04-27] MEDS: Pregabalin 75 MG CAP PO SCH (21:05)
[2021-04-27] MEDS: Rosuvastatin 20 MG TAB PO SCH (21:05)
[2021-04-27] MEDS ORDERED: Temazepam 15 MG CAP PO PRN (22:49)
[2021-04-28] MEDS: Levothyroxine Sodium 125 MCG TAB PO SCH (06:13)
[2021-04-28] MEDS: Furosemide 40 MG/4 ML VIAL SLOW IVP SCH ×2 (06:13→13:20)
[2021-04-28] MEDS ORDERED: Ondansetron ODT 4 MG TAB PO PRN (08:14)
[2021-04-28] MEDS: Escitalopram Oxalate 10 mg Tablet PO SCH (09:06)
[2021-04-28] MEDS: NIFEdipine XL 60 MG TAB PO SCH ×2 (09:06→20:52)
[2021-04-28] MEDS: Potassium Chloride 20 MEQ TAB PO SCH (09:06)
[2021-04-28] MEDS: Dronedarone HCl 400 MG TAB PO SCH ×2 (09:06→20:51)
[2021-04-28] MEDS: Carvedilol 25 MG TAB PO SCH (09:06)
[2021-04-28] MEDS: hydrALAZINE 25 MG TAB PO SCH ×3 (09:07→17:35)
[2021-04-28] MEDS: Aspirin 81 mg Enteric Coated Tablet PO SCH (09:07)
[2021-04-28] MEDS ORDERED: Polyethylene Glycol 3350 17 GM Packet PO PRN (11:09)
[2021-04-28] MEDS: cefTRIAXone\\ROCEPHIN 1 GM in Sodium Chloride 0.9% 100 ML IVPB SCH (11:40)
[2021-04-28] MEDS ORDERED: Pantoprazole 40 MG VIAL IVP SCH (12:30)
[2021-04-28] MEDS ORDERED: Carvedilol 25 MG TAB PO SCH (12:41)
[2021-04-28] MEDS ORDERED: Carvedilol 6.25 MG TAB PO SCH (12:45)
[2021-04-28] MEDS ORDERED: predniSONE 20 MG TAB PO SCH (13:00)
[2021-04-28] MEDS: Morphine 4 MG/ML VIAL SLOW IVP PRN (18:01)
[2021-04-28] MEDS: Mometasone 100 MCG/Formoterol 5 MCG 120 PUFF INHALER INH SCH (19:33)
[2021-04-28] MEDS: Enoxaparin Sodium 40 MG/0.4 ML SYRINGE SC SCH (20:49)
[2021-04-28] MEDS: Carvedilol 6.25 MG TAB PO SCH (20:50)
[2021-04-28] MEDS: Baclofen 10 MG TAB PO PRN (20:51)
[2021-04-28] MEDS: Rosuvastatin 20 MG TAB PO SCH (20:51)
[2021-04-28] MEDS: Pregabalin 75 MG CAP PO SCH (20:52)
[2021-04-28] MEDS: traZODone HCl 50 MG TAB PO PRN (20:53)
[2021-04-28] MEDS ORDERED: Non-Formulary Item 1 EACH (Temazepam [Temazepam] 30 MG Capsule) PO SCH (21:00)
[2021-04-29 03:58] LABS: Anion Gap 14 mmol/L (10-20); BUN (Urea Nitrogen) 25 mg/dL (9.8-20.1); Calc. Creatinine Clearance 95 mL/min (70-130); Calcium 8.8 mg/dL (7.8-10.44); Carbon Dioxide 34 mmol/L (23-31); Chloride 97 mmol/L (98-107); Glucose 124 mg/dL (80-115); Potassium 3.7 mmol/L (3.5-5.1); Sodium 141 mmol/L (136-145)
[2021-04-29] MEDS: Levothyroxine Sodium 125 MCG TAB PO SCH (05:54)
[2021-04-29] MEDS: Furosemide 40 MG/4 ML VIAL SLOW IVP SCH ×2 (05:54→14:35)
[2021-04-29] MEDS: Mometasone 100 MCG/Formoterol 5 MCG 120 PUFF INHALER INH SCH ×2 (07:26→19:22)
[2021-04-29] MEDS: Aspirin 81 mg Enteric Coated Tablet PO SCH (08:02)
[2021-04-29] MEDS: Carvedilol 6.25 MG TAB PO SCH ×2 (08:02→21:37)
[2021-04-29] MEDS: Dronedarone HCl 400 MG TAB PO SCH ×2 (08:02→21:37)
[2021-04-29] MEDS: predniSONE 20 MG TAB PO SCH (08:02)
[2021-04-29] MEDS: Escitalopram Oxalate 10 mg Tablet PO SCH (08:03)
[2021-04-29] MEDS: Potassium Chloride 20 MEQ TAB PO SCH (08:03)
[2021-04-29] MEDS: NIFEdipine XL 60 MG TAB PO SCH ×2 (08:03→21:37)
[2021-04-29] MEDS: Enoxaparin Sodium 40 MG/0.4 ML SYRINGE SC SCH ×2 (08:04→21:37)
[2021-04-29] MEDS: hydrALAZINE 25 MG TAB PO SCH ×3 (08:04→16:47)
[2021-04-29] MEDS: cefTRIAXone\\ROCEPHIN 1 GM in Sodium Chloride 0.9% 100 ML IVPB SCH (11:32)
[2021-04-29] MEDS: Baclofen 10 MG TAB PO PRN ×2 (11:39→21:40)
[2021-04-29] MEDS: HYDROcodone/Acetaminophen 5/325 mg Tablet PO PRN ×2 (16:50→21:40)
[2021-04-29] MEDS: Pregabalin 75 MG CAP PO SCH (21:36)
[2021-04-29] MEDS: traZODone HCl 50 MG TAB PO PRN (21:37)
[2021-04-29] MEDS: Rosuvastatin 20 MG TAB PO SCH (21:37)
[2021-04-30] MEDS: Levothyroxine Sodium 125 MCG TAB PO SCH (06:10)
[2021-04-30 06:58] LABS: Chloride 98 mmol/L (98-107); Sodium 136 mmol/L (136-145)
[2021-04-30 06:59] LABS: Calcium 8.9 mg/dL (7.8-10.44); Glucose 114 mg/dL (80-115)
[2021-04-30] MEDS: Mometasone 100 MCG/Formoterol 5 MCG 120 PUFF INHALER INH SCH ×2 (07:00→19:07)
[2021-04-30 07:01] LABS: Carbon Dioxide 27 mmol/L (23-31)
[2021-04-30 07:02] LABS: Calc. Creatinine Clearance 86 mL/min (70-130)
[2021-04-30 07:03] LABS: BUN (Urea Nitrogen) 29 mg/dL (9.8-20.1)
[2021-04-30] MEDS: hydrALAZINE 25 MG TAB PO SCH ×3 (09:45→17:12)
[2021-04-30] MEDS: NIFEdipine XL 60 MG TAB PO SCH ×2 (09:45→20:46)
[2021-04-30] MEDS: Dronedarone HCl 400 MG TAB PO SCH ×2 (09:45→20:46)
[2021-04-30] MEDS: Escitalopram Oxalate 10 mg Tablet PO SCH (09:45)
[2021-04-30] MEDS: Potassium Chloride 20 MEQ TAB PO SCH (09:46)
[2021-04-30] MEDS: Enoxaparin Sodium 40 MG/0.4 ML SYRINGE SC SCH ×2 (09:46→20:46)
[2021-04-30] MEDS: Aspirin 81 mg Enteric Coated Tablet PO SCH (09:46)
[2021-04-30] MEDS: Carvedilol 6.25 MG TAB PO SCH ×2 (09:46→20:48)
[2021-04-30] MEDS: Furosemide 40 MG TAB PO SCH (09:46)
[2021-04-30] MEDS: predniSONE 20 MG TAB PO SCH (09:47)
[2021-04-30] MEDS: cefTRIAXone\\ROCEPHIN 1 GM in Sodium Chloride 0.9% 100 ML IVPB SCH (10:58)
[2021-04-30] MEDS: HYDROcodone/Acetaminophen 5/325 mg Tablet PO PRN ×2 (10:59→22:21)
[2021-04-30 14:44] LABS: Anion Gap 15 mmol/L (10-20)
[2021-04-30] MEDS: Pregabalin 75 MG CAP PO SCH (20:38)
[2021-04-30] MEDS: Rosuvastatin 20 MG TAB PO SCH (20:46)
[2021-05-01] MEDS: Levothyroxine Sodium 125 MCG TAB PO SCH (05:40)
[2021-05-01] MEDS: Mometasone 100 MCG/Formoterol 5 MCG 120 PUFF INHALER INH SCH (06:40)
[2021-05-01 07:22] LABS: Anion Gap 13 mmol/L (10-20); BUN (Urea Nitrogen) 30 mg/dL (9.8-20.1); Calc. Creatinine Clearance 82 mL/min (70-130); Calcium 9.1 mg/dL (7.8-10.44); Carbon Dioxide 35 mmol/L (23-31); Chloride 97 mmol/L (98-107); Glucose 125 mg/dL (80-115); Potassium 3.6 mmol/L (3.5-5.1); Sodium 141 mmol/L (136-145)
[2021-05-01] MEDS: Escitalopram Oxalate 10 mg Tablet PO SCH (08:43)
[2021-05-01] MEDS: predniSONE 20 MG TAB PO SCH (08:44)
[2021-05-01] MEDS: hydrALAZINE 25 MG TAB PO SCH ×2 (08:44→11:47)
[2021-05-01] MEDS: Potassium Chloride 20 MEQ TAB PO SCH (08:45)
[2021-05-01] MEDS: Carvedilol 6.25 MG TAB PO SCH (08:45)
[2021-05-01] MEDS: Furosemide 40 MG TAB PO SCH (08:45)
[2021-05-01] MEDS: Dronedarone HCl 400 MG TAB PO SCH (08:45)
[2021-05-01] MEDS: NIFEdipine XL 60 MG TAB PO SCH (08:46)
[2021-05-01] MEDS: Enoxaparin Sodium 40 MG/0.4 ML SYRINGE SC SCH (08:46)
[2021-05-01] MEDS: Aspirin 81 mg Enteric Coated Tablet PO SCH (09:30)
[2021-05-01] MEDS: cefTRIAXone\\ROCEPHIN 1 GM in Sodium Chloride 0.9% 100 ML IVPB SCH (11:47)
[2021-05-01 13:58] VITALS: BP 138/72; TEMP 97.8
== END 2021-05-01 14:07 | disposition home health service (06) | DRG 189 ==
LOC: ERS 09:49 → OBSVTOIN 11:46 → ERHOLD 11:46 → IMCU/EMU 16:17 → T4-B 04-30 16:27
PROVIDERS: ADMIT Internal Medicine; ATTEND Internal Medicine
PROC: 5A09357 Assistance with Respiratory Ventilation, Less than 24 Consecutive Hours, Continuous Positive Airway Pressure (ICD-10-PCS; principal; 2021-04-26)
DX: J96.21 Acute and chronic respiratory failure with hypoxia (principal); I13.0 Hypertensive heart and chronic kidney disease with heart failure and stage 1 through stage 4 chronic kidney disease, or unspecified chronic kidney disease; Z23 Encounter for immunization; Z20.822 Contact with and (suspected) exposure to COVID-19; J44.1 Chronic obstructive pulmonary disease with (acute) exacerbation; N17.9 Acute kidney failure, unspecified; Z68.43 Body mass index [BMI] 50.0-59.9, adult; E87.3 Alkalosis; J45.901 Unspecified asthma with (acute) exacerbation; I42.8 Other cardiomyopathies; I50.32 Chronic diastolic (congestive) heart failure; J96.22 Acute and chronic respiratory failure with hypercapnia; N18.30 Chronic kidney disease, stage 3 unspecified; E78.5 Hyperlipidemia, unspecified; I25.10 Atherosclerotic heart disease of native coronary artery without angina pectoris; F41.9 Anxiety disorder, unspecified; F32.A Depression, unspecified; I16.0 Hypertensive urgency; E66.01 Morbid (severe) obesity due to excess calories; D63.1 Anemia in chronic kidney disease; G89.29 Other chronic pain; I08.1 Rheumatic disorders of both mitral and tricuspid valves; G47.33 Obstructive sleep apnea (adult) (pediatric); Z99.89 Dependence on other enabling machines and devices; I48.0 Paroxysmal atrial fibrillation; K59.00 Constipation, unspecified; Z88.8 Allergy status to other drugs, medicaments and biological substances; Z91.09 Other allergy status, other than to drugs and biological substances; Z79.899 Other long term (current) drug therapy; Z79.82 Long term (current) use of aspirin; Z79.890 Hormone replacement therapy; Z79.51 Long term (current) use of inhaled steroids; Z89.511 Acquired absence of right leg below knee; Z95.5 Presence of coronary angioplasty implant and graft; Z98.1 Arthrodesis status; Z98.890 Other specified postprocedural states; Z95.818 Presence of other cardiac implants and grafts; Z87.891 Personal history of nicotine dependence; Z82.3 Family history of stroke
CPT/HCPCS: 0240U; 36415; 36600; 71045; 80048; 80053; 81003; 81015; 82550; 82805; 83605; 83690; 83735; 83880; 84439; 84443; 84484; 85025; 85610; 85730; 87040; 87086; 90471; 90732; 93005; 93306; 94640; 94660; 96365; 96375; 99292; C9113; G0009; G0378; J0696; J1650; J1940; J2270; J2930; J3475; J3490; J7512; J7620; Q0162